=== PATIENT | male | born 1945 | race Two or more races ===

== ENCOUNTER 2019-12-13 08:05 | Emergency (ER) | payer OTHER ==
[~2019-12-13] VITALS: Ht 165.1 cm; Wt 64.4 kg
[2019-12-13] MEDS ORDERED: LOTREL 10-20 M1 EACH (08:20)
[2019-12-13] MEDS ORDERED: TOPROL XL25 M1 (08:20)
== END 2019-12-13 14:25 | disposition home or self-care (01) ==
LOC: ER 08:05
DX: N21.8 Other lower urinary tract calculus (principal)

== ENCOUNTER 2020-10-04 14:32 | Emergency (ER) | payer OTHER ==
[~2020-10-04] VITALS: Ht 165.1 cm; Wt 66.7 kg
[~2020-10-04 14:32] MED LIST: LOTREL 10-20 M1 EACH; TOPROL XL25 M1
[2020-10-04] MEDS ORDERED: CEFUROXIME500 MG (14:58)
[2020-10-04] MEDS ORDERED: ULTRAM50 MG (14:58)
== END 2020-10-04 15:55 | disposition home or self-care (01) ==
LOC: ER 14:32
DX: R33.8 Other retention of urine (principal)

== ENCOUNTER 2020-10-05 11:08 | Emergency (ER) | payer OTHER ==
[~2020-10-05] VITALS: Ht 175.3 cm; Wt 72.6 kg
[~2020-10-05 11:08] MED LIST changes: +CEFUROXIME500 MG; +ULTRAM50 MG
== END 2020-10-05 20:41 | disposition home or self-care (01) ==
LOC: ER 11:08
DX: R33.8 Other retention of urine (principal); R10.2 Pelvic and perineal pain; N99.89 Other postprocedural complications and disorders of genitourinary system

== ENCOUNTER 2020-10-10 19:36 | Emergency (ER) | payer OTHER ==
[~2020-10-10] VITALS: Ht 165.1 cm; Wt 66.2 kg
== END 2020-10-10 21:10 | disposition home or self-care (01) ==
LOC: ER 19:36
DX: N13.8 Other obstructive and reflux uropathy (principal)

== ENCOUNTER 2020-10-19 08:47 | Outpatient (CLI) | payer OTHER | END 2020-10-19 09:06 | disposition home or self-care (01) | LOC: RAD 08:47 | PROVIDERS: ATTEND Urology | DX: N21.0 Calculus in bladder (principal) ==

== ENCOUNTER 2021-01-25 08:53 | Outpatient (CLI) | payer OTHER | END 2021-01-25 08:55 | disposition home or self-care (01) | LOC: RAD 08:53 | PROVIDERS: ATTEND Urology | DX: N21.0 Calculus in bladder (principal) ==

== ENCOUNTER 2023-08-04 09:26 | Outpatient (CLI) | payer OTHER | END 2023-08-04 09:29 | disposition home or self-care (01) | LOC: NUCLEAR 09:26 | DX: I73.9 Peripheral vascular disease, unspecified (principal); I82.403 Acute embolism and thrombosis of unspecified deep veins of lower extremity, bilateral; I87.2 Venous insufficiency (chronic) (peripheral) ==

== ENCOUNTER → 2023-08-05 | Outpatient (CLI) | payer OTHER | END | disposition home or self-care (01) | LOC: NUCLEAR 10:00 | PROVIDERS: ATTEND Internal Medicine | DX: I73.9 Peripheral vascular disease, unspecified (principal); I82.403 Acute embolism and thrombosis of unspecified deep veins of lower extremity, bilateral; I87.2 Venous insufficiency (chronic) (peripheral) ==

== ENCOUNTER 2024-02-14 10:27 | Outpatient (CLI) | payer OTHER | END 2024-02-14 10:39 | disposition home or self-care (01) | LOC: MRI 10:27 | PROVIDERS: ATTEND Internal Medicine Endocrinology, Diabetes & Metabolism | DX: M81.0 Age-related osteoporosis without current pathological fracture (principal); R73.03 Prediabetes | CPT/HCPCS: 72148; 73721 ==